=== PATIENT | male | born 1990 | race Caucasian/White ===

== ENCOUNTER 2021-10-29 23:08 | Emergency (ER) | payer MEDICAID ==
[~2021-10-29] VITALS: Ht 175.3 cm; Wt 68.2 kg
[2021-10-29] MEDS ORDERED: FLUORESCEIN SODIUM 1 MG STRIP OD ONE (23:30)
[2021-10-29] MEDS ORDERED: PROPARACAINE HCL 0.5% 15 ML OPHTHALMIC SOLUTION OD ONE (23:45)
[2021-10-30] MEDS ORDERED: POLY10DR3 OD (00:42)
[2021-10-30 01:05] VITALS: BP 119/67
== END 2021-10-30 01:11 | disposition home or self-care (01) ==
LOC: EMS 23:13
DX: H10.89 Other conjunctivitis (principal)
CPT/HCPCS: 99283